=== PATIENT | male | born 1960 | race Caucasian/White ===

== ENCOUNTER 2016-10-23 19:34 | Emergency (ER) | payer BC ==
[~2016-10-23] VITALS: Wt 77.0 kg
[~2016-10-23 19:34] MED LIST: ATEN100T PO; GLYB2.5T PO; SITA100T8 PO
[2016-10-23] MEDS ORDERED: ACETAMINOPHEN 500 MG TAB PO STA (22:51)
--- NOTE | 2016-10-23 22:59 | ERD ---
ER Documentation Chief Complaint Date/Time DATE: 10/23/16 TIME: 22:53 Chief Complaint headache, pain/pressure 2 weeks HPI 55-year-old male presents here in emergency department for complaints of neck pain, head take for 2 weeks. Patient is complaining of soreness of the neck, throbbing pain, 6/10 scale, worse upon movement, feels muscle spasms in the neck , has been having it for the last 2 weeks, he radiates from the neck area to the lower head base. Patient also has high blood pressure, states that has been elevated. Patient did not have any trauma. Patient denies any nausea vomiting. Patient denies any blurry vision. Patient denies any focal weakness, numbness or tingling. Patient denies any changes in balance or memory. Patient denies any fever or chills. ROS All systems reviewed and are negative except as per history of present illness. Medications Home Meds Reported Medications Glyburide* (Diabeta*) 2.5 Mg Tablet, 2.5 MG PO DAILY 02/25/12 Sitagliptin* (Januvia*) 100 Mg Tablet, 100 MG PO DAILY 02/25/12 Atenolol* (Atenolol*) 100 Mg Tablet, 100 MG PO DAILY 11/19/10 Allergies Allergies: Coded Allergies: No Known Allergies (Verified Allergy, Mild, 06/30/16) PMhx/Soc History of Surgery: Yes (kidney stones ) Anesthesia Reaction: No Hx Neurological Disorder: No Hx Respiratory Disorders: No Hx Cardiac Disorders: No Hx Psychiatric Problems: No Hx Miscellaneous Medical Probl: Yes (dm htn ) Hx Alcohol Use: No Hx Substance Use: No Hx Tobacco Use: No FmHx Family History: No coronary disease, No diabetes, No other Physical Exam Vitals Vital Signs Date Time Temp Pulse Resp B/P Pulse Ox O2 Delivery O2 Flow Rate FiO2 10/23/16 19:38 98.3 74 15 169/88 99 Physical Exam GENERAL: The patient is well developed and appropriate for usual state of health, in no apparent distress. CHEST: Clear to auscultation bilaterally. There are no rales, wheezes or rhonchi. HEART: Regular rate and rhythm. No murmurs, clicks, rubs or gallops. No S3 or S4. ABDOMEN: Soft, nontender and nondistended. Good bowel sounds. No rebound or guarding. No gross peritonitis. No gross organomegaly or masses. No Blakely sign or McBurney point tenderness. BACK: No midline or flank tenderness. EXTREMITIES: Equal pulses bilaterally. There is no peripheral clubbing, cyanosis or edema. No focal swelling or erythema. Full range of motion. Grossly neurovascularly intact. NEURO: Alert and oriented. Cranial nerves 2-12 intact. Motor strength in all 4 extremities with 5/5 strength. Sensation grossly intact. Normal speech and gait. Negative Romberg sign. Negative pronator drift. SKIN: There is no apparent rash or petechia. The skin is warm and dry. HEMATOLOGIC AND LYMPHATIC: There is no evidence of excessive bruising or lymphedema. No gross cervical, axillary, or inguinal lymphadenopathy. Results 24 hrs Current Medications Medications (Trade) Dose Ordered Sig/Marcelle Route PRN Reason Start Time Stop Time Status Last Admin Dose Admin Acetaminophen (Tylenol Tab) 500 mg ONCE STAT PO 10/23/16 22:51 10/23/16 22:53 DC 10/23/16 23:59 Patient was given medication for pain here in emergency department, after treatment, patient verbalized feeling much better. Patient's pain is improved. PROCEDURE: CT BRAIN WITHOUT CONTRAST CLINICAL INDICATION: 55-year-old male with headaches. TECHNIQUE: The study was performed utilizing [employer] VCT 64-slice CT scanner. Direct axial sections were obtained from the foramen magnum to the vertex without the use of intravenous contrast material. Sagittal and coronal reformations were obtained. Automated exposure control and iterative reconstruction techniques were utilized for this examination. The images were viewed on a PACS workstation. CTD/vol = 44.5 mGy; Total Exam DLP = 720.2 mGy- cm. COMPARISON: None. FINDINGS: The ventricles are normal size, shape and position. There is no evidence for mass effect or midline shift. There are no intracranial areas of abnormal attenuation. There is no evidence for acute intra or extra-axial blood. The bony calvarium is intact. The partially visualized paranasal sinuses are without significant soft tissue. No air-fluid levels are noted. There is soft tissue filling the right mastoid air cells which are partially sclerotic. The left mastoid air cells are without significant soft tissue. IMPRESSION: 1. The intracranial contents are unremarkable on this noncontrast CT scan of the brain. 2. Right mastoid disease. .Brien Tejada MD, MD Date Time Electronically viewed and signed by .Brien Tejada MD, on 10/24/2016 00:57 .M/ Procedures/MDM Medical Decision Making: Patient's of headache most likely consistent with tension headache, also can be and neck muscle strain. There is low suspicion for neurological emergencies at this time since patients neurologic exam is normal. Patient did not have any altered level consciousness, vomiting, changes in balance or memory after incident. Patients CT scan of the head does not show any neurological emergencies at this time. Radiology exam of the cervical spine is not indicated at this time. No trauma involved. Patient was given prescription for Tylenol, Flexeril, patient is advised to apply warm compresses on affected area. Patient is advised to return to emergency department for any worsening symptoms Departure Diagnosis: Primary Impression: Headache Headache type: unspecified Headache chronicity pattern: unspecified pattern Intractability: not intractable Qualified Code: R51 - Nonintractable headache, unspecified chronicity pattern, unspecified headache type Additional Impression: Neck muscle strain Encounter type: initial encounter Qualified Code: S16.1XXA - Neck muscle strain, initial encounter Condition: Stable Patient Instructions: Neck Sprain/Strain, Self-Care for Headaches Additional Instructions: Patient was given prescription for Tylenol, Flexeril, patient is advised to apply warm compresses on affected area. Patient is advised to return to emergency department for any worsening symptoms REED TAVERAS NP Oct 23, 2016 22:59
--- NOTE | 2016-10-24 00:57 | RADRPT ---
PROCEDURE: CT BRAIN WITHOUT CONTRAST CLINICAL INDICATION: 55-year-old male with headaches. TECHNIQUE: The study was performed utilizing [employer] VCT 64-slice CT scanner. Direct axial sections were obtained from the foramen magnum to the vertex without the use of intravenous contrast material. Sagittal and coronal reformations were obtained. Automated exposure control and iterativ e reconstruction techniques were utilized for this examination. The images were viewed on a PACS [employer]. CTD/vol = 44.5 mGy; Total Exam DLP = 720.2 mGy-cm. COMPARISON: None. FINDINGS: The ventricles are normal size, shape and position. There is no evidence for mass effect or midline shift. There are no intracranial areas of abnormal attenuation. There is no evidence for acute in tra or extra-axial blood. The bony calvarium is intact. The partially visualized paranasal sinuses a re without significant soft tissue. No air-fluid levels are noted. There is soft tissue filling th e right mastoid air cells which are partially sclerotic. The left mastoid air cells are without sig nificant soft tissue. IMPRESSION: 1. The intracranial contents are unremarkable on this noncontrast CT scan of the brain. 2. Right mastoid disease. .Brien Tejada MD, MD Date Time Electronically viewed and signed by .Brien Tejada MD, on 10/24/2016 00:57 .M/
[2016-10-24] MEDS ORDERED: ACET500C5 PO (01:02)
[2016-10-24] MEDS ORDERED: CYCL-319 PO (01:02)
[2016-10-24 01:20] VITALS: BP 161/90; PULSE 65; RESP 20
== END 2016-10-24 01:20 | disposition home or self-care (01) ==
LOC: FTE 19:34
DX: R51 Headache (principal); S16.1XXA Strain of muscle, fascia and tendon at neck level, initial encounter; I10 Essential (primary) hypertension; E11.9 Type 2 diabetes mellitus without complications; X58.XXXA Exposure to other specified factors, initial encounter; Y92.9 Unspecified place or not applicable; Z79.84 Long term (current) use of oral hypoglycemic drugs
CPT/HCPCS: 70450; Z7502; Z7610

== ENCOUNTER 2017-06-03 08:20 | Emergency (ER) | payer BC ==
[~2017-06-03] VITALS: Ht 170.2 cm; Wt 74.0 kg
[~2017-06-03 08:20] MED LIST changes: +ACET500C5 PO; +CYCL-319 PO
[2017-06-03 08:27] VITALS: Ht 170.2 cm; Wt 74.0 kg
[2017-06-03] MEDS ORDERED: SOD CHLORIDE 0.9% 1,000 ML IV STA (08:41)
[2017-06-03] MEDS ORDERED: KETOROLAC 30 MG INJ IV STA (08:41)
[2017-06-03] MEDS ORDERED: ONDANSETRON 4 MG INJ IV STA (08:41)
--- NOTE | 2017-06-03 08:58 | ERD ---
ER Documentation Chief Complaint Date/Time DATE: 06/03/17 TIME: 08:56 Chief Complaint pt bib self with c/o flank pain 3-4 wks HPI 56-year-old male with a history of kidney stones, stent placement presents with bilateral flank pain that is sharp and intermittent for approximately 3-4 weeks now. Patient reports that the pain is intermittent, moderate, not improving with ibuprofen at home. In October 2016 he states that there was stent placement with kidney stone removal with Dr. Jason. Since then he has not tried any new interventions. He denies any hematuria, fevers, chills, he denies any urinary complaints including burning, urgency or frequency of urination. He denies chest pain or shortness of breath. ROS All systems reviewed and are negative except as per history of present illness. Medications Home Meds Active Scripts Hydrocodone/Acetaminophen ([place] 5-325 Tablet) 1 Each Tablet, 1 TAB PO Q6H Y for PAIN, #15 TAB Prov:LOVE LOVELACE PA-C 06/03/17 Cyclobenzaprine Hcl* (Cyclobenzaprine Hcl*) 10 Mg Tablet, 10 MG PO TID, #15 TAB Prov:REED TAVERAS NP 10/24/16 Acetaminophen* (Tylophen*) 500 Mg Capsule, 1 CAP PO Q6H Y for PAIN AND OR ELEVATED TEMP, #20 CAP Prov:REED TAVERAS GEODETIC SURVEY DIRECTOR 10/24/16 Reported Medications Glyburide* (Diabeta*) 2.5 Mg Tablet, 2.5 MG PO DAILY 02/25/12 Sitagliptin* (Januvia*) 100 Mg Tablet, 100 MG PO DAILY 02/25/12 Atenolol* (Atenolol*) 100 Mg Tablet, 100 MG PO DAILY 11/19/10 Allergies Allergies: Coded Allergies: No Known Allergies (Verified Allergy, Mild, 06/30/16) PMhx/Soc History of Surgery: Yes (Kidney, stent placed) Anesthesia Reaction: No Hx Neurological Disorder: No Hx Respiratory Disorders: No Hx Cardiac Disorders: No Hx Psychiatric Problems: No Hx Miscellaneous Medical Probl: Yes (dm htn ) Hx Alcohol Use: No Hx Substance Use: No Hx Tobacco Use: No Physical Exam Vitals Vital Signs Date Time Temp Pulse Resp B/P Pulse Ox O2 Delivery O2 Flow Rate FiO2 06/03/17 08:27 98.3 68 14 136/72 98 Physical Exam General: Well-developed, well-nourished. The patient appears in no acute distress. HEENT: Head is normocephalic, atraumatic. No scleral icterus. Neck: Supple. Nontender. Lungs: Clear to auscultation. Normal air movement. Heart: Regular rate and rhythm. S1 and S2 are normal. No murmurs, gallops, or rubs. Abdomen: Soft, nontender, nondistended. Bowel sounds are normoactive. Extremities: No clubbing or cyanosis. Normal pulses. Moving extremities x 4. No weakness. Neurologic: Alert and oriented 3. No focal deficits. Skin: Normal turgor. No rash or lesions. Result Diagram: 06/03/17 0900 06/03/17 0900 Results 24 hrs Laboratory Tests Test 06/03/17 09:00 White Blood Count 7.410^3/ul Red Blood Count 4.4010^6/ul Hemoglobin 14.0g/dl Hematocrit 40.3% Mean Corpuscular Volume 91.6fl Mean Corpuscular Hemoglobin 31.8pg Mean Corpuscular Hemoglobin Concent 34.7g/dl Red Cell Distribution Width 12.7% Platelet Count 29791^3/UL Mean Platelet Volume 10.1fl Neutrophils % 50.5% Lymphocytes % 35.8% Monocytes % 9.9% Eosinophils % 2.6% Basophils % 0.8% Nucleated Red Blood Cells % 0.0/100WBC Neutrophils # (Manual) 3.710^3/ul Lymphocytes # 2.710^3/ul Monocytes # 0.710^3/ul Eosinophils # 0.210^3/ul Basophils # 0.110^3/ul Nucleated Red Blood Cells # 0.010^3/ul Urine Color YELLOW Urine Clarity CLEAR Urine pH 6.0 Urine Specific [place] 1.014 Urine Ketones NEGATIVEmg/dL Urine Nitrite NEGATIVEmg/dL Urine Bilirubin NEGATIVEmg/dL Urine Urobilinogen NEGATIVEmg/dL Urine Leukocyte Esterase NEGATIVELeu/ul Urine Hemoglobin NEGATIVEmg/dL Urine Glucose NEGATIVEmg/dL Urine Total Protein NEGATIVEmg/dl Sodium Level 148mmol/L Potassium Level 3.4mmol/L Chloride Level 103mmol/L Carbon Dioxide Level 28mmol/L Anion Gap 20 Blood Urea Nitrogen 16mg/dl Creatinine 1.37mg/dl Glucose Level 98mg/dl Calcium Level 9.4mg/dl Total Bilirubin 0.4mg/dl Direct Bilirubin 0.00mg/dl Indirect Bilirubin 0.4mg/dl Aspartate Amino Transf (AST/SGOT) 41IU/L Alanine Aminotransferase (ALT/SGPT) 71IU/L Alkaline Phosphatase 107IU/L Total Protein 8.1g/dl Albumin 4.6g/dl Globulin 3.50g/dl Albumin/Globulin Ratio 1.31 Lipase 11U/L Current Medications Medications (Trade) Dose Ordered Sig/Marcelle Route PRN Reason Start Time Stop Time Status Last Admin Dose Admin Sodium Chloride (NS) 1,000 ml @ 1,000 mls/hr Q1H STAT IV 06/03/17 08:41 06/03/17 09:40 DC 06/03/17 09:13 Ondansetron HCl (Zofran Inj) 4 mg ONCE STAT IV 06/03/17 08:41 06/03/17 08:44 DC 06/03/17 09:13 Ketorolac Tromethamine (Toradol) 30 mg ONCE STAT IV 06/03/17 08:41 06/03/17 08:44 DC 06/03/17 09:14 DIAGNOSTIC IMAGING REPORT Patient: GRACE BALLARD : 1960 Age: 56 Sex: M MR #: [id number] DOS: 06/03/17 0843 Ordering MD: LOVE LOVELACE PA-C Location: E Room/Bed: PROCEDURE: CT Abdomen and Pelvis without contrast. CLINICAL INDICATION: Bilateral flank pain. TECHNIQUE: CT scan of the abdomen and pelvis without contrast was performed on a multidetector high-resolution CT scanner. The patient was scanned without intravenous contrast. Coronal and sagittal reformatted images were obtained from the axial source images. Images were reviewed on a high-resolution PACS workstation. One or more of the following dose reduction techniques were used: Automated exposure control, adjustment of the mA and/or kV according to patient size, use of iterative reconstruction technique. The total exam CTDI equals 9.24 mGy and the total exam DLP equals 560.73 mGy-cm. COMPARISON: CT from 09/20/2015. FINDINGS: CT abdomen: The lung bases are clear. The heart size is normal, without pericardial thickening or effusion. The liver is normal in size and density without focal mass or intrahepatic biliary dilatation. The spleen is normal in size and homogeneous in density. The stomach is grossly unremarkable. Extensive calcification and atrophic changes are noted within the pancreas, suggestive of chronic pancreatitis. The gallbladder and biliary tree are unremarkable and there is no evidence for biliary dilatation. The adrenal glands are symmetric and normal. A 3.3 x 2.7 cm cyst is present at the superior pole of the left kidney. A focal right perinephric calcification is present, likely benign. Otherwise, the kidneys are unremarkable. No renal calculus or obstructive uropathy or mass lesion is seen. The aorta is of normal caliber. There is no retroperitoneal lymphadenopathy. The mar hepatis region is clear. The small bowel and mesentery, as visualized , are unremarkable. Scattered diverticula are present throughout the descending colon without evidence of diverticulitis. CT pelvis: The small bowel loops situated within the pelvis are unremarkable. The pelvic organs are normal. The pelvic sidewalls and inguinal regions are clear. The sigmoid colon and rectum are unremarkable. The appendix is normal. No mass, lymphadenopathy, or free fluid is seen. No acute inflammation is seen. There is a small fat-containing indirect left inguinal hernia. The surrounding osseous structures are unremarkable. No osteolytic or osteoblastic lesion is detected. IMPRESSION: 1. No evidence of urolithiasis or obstructive uropathy. No abdominal or pelvic acute inflammatory process, mass, or lymphadenopathy. 2. Chronic pancreatitis with diffuse calcifications seen throughout the pancreas. 3. Diverticulosis without evidence of diverticulitis. 4. Small fat-containing indirect left inguinal hernia. RPTAT: JJ .Rocco Peres MD, MD Date Time Electronically viewed and signed by .Rocco Peres MD, on 06/03/2017 09:48 Procedures/[facility] ED course: Patient's IV lines please, labs and urine are obtained, he was given a fluid bolus of normal saline 1 L with Toradol 30 mg IV and Zofran 4 mg IV. Medical decision m[age]-year-old with a history of kidney stones presents with bilateral flank pain for 1 month, CT abdomen pelvis shows evidence of a chronic pancreatitis that was seen on a previous CT scan in 2015. Patient also has evidence of a left inguinal hernia, as well as a renal cyst on the left side. There is no evidence of urolithiasis. There is signs of septic kidney stones, acute pancreatitis, dissection, acute coronary syndrome. The case was reviewed and discussed with Dr. Kerr who agrees with the plan of care including labs, treatment, and advanced imaging as appropriate. Departure Diagnosis: Primary Impression: Flank pain Additional Impressions: Chronic pancreatitis Renal cyst Left inguinal hernia Condition: LOVE Naylor PA-C Jun 03, 2017 08:56
[2017-06-03 09:17] LABS: BASOPHIL # 0.1 10^3/ul (0.0-0.1); BASOPHILS % 0.8 % (0.0-2.0); EOSINOPHILS # 0.2 10^3/ul (0.0-0.5); EOSINOPHILS % 2.6 % (0.0-7.0); HEMATOCRIT 40.3 % (42.0-52.0); LYMPHOCYTES # 2.7 10^3/ul (0.8-2.9); LYMPHOCYTES % 35.8 % (15.0-51.0); MEAN CORPUSCULAR HEMOGLOBIN 31.8 pg (29.0-33.0); MEAN CORPUSCULAR HGB CONC 34.7 g/dl (32.0-37.0); MEAN CORPUSCULAR VOLUME 91.6 fl (82.0-101.0); MEAN PLATELET VOLUME 10.1 fl (7.4-10.4); MONOCYTE # 0.7 10^3/ul (0.3-0.9); MONOCYTES % 9.9 % (0.0-11.0); NEUTROPHILS % 50.5 % (39.0-77.0); PLATELET COUNT 233 10^3/UL (140-415); RED CELL DISTRIBUTION WIDTH 12.7 % (11.5-14.5); WHITE BLOOD COUNT 7.4 10^3/ul (4.8-10.8)
[2017-06-03 09:25] LABS: ADD UMIC NO; UR ASCORBIC ACID NEGATIVE (NEGATIVE); UR BILIRUBIN (Dip) NEGATIVE (NEGATIVE); UR BLOOD (Dip) NEGATIVE (NEGATIVE); UR CLARITY CLEAR (CLEAR); UR COLOR YELLOW (YELLOW); UR GLUCOSE (Dip) NEGATIVE (NEGATIVE); UR KETONES (Dip) NEGATIVE (NEGATIVE); UR LEUKOCYTE ESTERASE (Dip) NEGATIVE Leu/ul (NEGATIVE); UR NITRITE (Dip) NEGATIVE (NEGATIVE); UR SPECIFIC GRAVITY (Dip) 1.014 (1.003-1.030); UR TOTAL PROTEIN (Dip) NEGATIVE (NEGATIVE); UR UROBILINOGEN (Dip) NEGATIVE (NEGATIVE)
[2017-06-03 09:41] LABS: ALBUMIN 4.6 g/dl (3.3-4.9); ALBUMIN/GLOBULIN RATIO 1.31; BILIRUBIN,INDIRECT 0.4 mg/dl (0-1.1); BILIRUBIN,TOTAL 0.4 mg/dl (0.2-1.3); CALCIUM 9.4 mg/dl (8.4-10.2); CREATININE 1.37 mg/dl (0.61-1.24); POTASSIUM 3.4 mmol/L (3.5-5.1); TOTAL PROTEIN 8.1 g/dl (6.1-8.1)
--- NOTE | 2017-06-03 09:48 | RADRPT ---
PROCEDURE: CT Abdomen and Pelvis without contrast. CLINICAL INDICATION: Bilateral flank pain. TECHNIQUE: CT scan of the abdomen and pelvis without contrast was performed on a multidetector hig h-resolution CT scanner. The patient was scanned without intravenous contrast. Coronal and sagittal reformatted images were obtained from the axial source images. Images were reviewed on a high-resol [employer] PACS workstation. One or more of the following dose reduction techniques were used: Automated exposure control, adjustment of the mA and/or kV according to patient size, use of iterative recon struction technique. The total exam CTDI equals 9.24 mGy and the total exam DLP equals 560.73 mGy-c m. COMPARISON: CT from 09/20/2015. FINDINGS: CT abdomen: The lung bases are clear. The heart size is normal, without pericardial thickening or effusion. The liver is normal in size and density without focal mass or intrahepatic biliary dilatation. The spleen is normal in size and homogeneous in density. The stomach is grossly unremarkable. Extensiv e calcification and atrophic changes are noted within the pancreas, suggestive of chronic pancreatit is. The gallbladder and biliary tree are unremarkable and there is no evidence for biliary dilatati on. The adrenal glands are symmetric and normal. A 3.3 x 2.7 cm cyst is present at the superior po le of the left kidney. A focal right perinephric calcification is present, likely benign. Otherwise , the kidneys are unremarkable. No renal calculus or obstructive uropathy or mass lesion is seen. The aorta is of normal caliber. There is no retroperitoneal lymphadenopathy. The mar hepatis reg ion is clear. The small bowel and mesentery, as visualized, are unremarkable. Scattered diverticul a are present throughout the descending colon without evidence of diverticulitis. CT pelvis: The small bowel loops situated within the pelvis are unremarkable. The pelvic organs are normal. T he pelvic sidewalls and inguinal regions are clear. The sigmoid colon and rectum are unremarkable. The appendix is normal. No mass, lymphadenopathy, or free fluid is seen. No acute inflammation is s een. There is a small fat-containing indirect left inguinal hernia. The surrounding osseous structures are unremarkable. No osteolytic or osteoblastic lesion is detec bigg. IMPRESSION: 1. No evidence of urolithiasis or obstructive uropathy. No abdominal or pelvic acute inflammatory p rocess, mass, or lymphadenopathy. 2. Chronic pancreatitis with diffuse calcifications seen throughout the pancreas. 3. Diverticulosis without evidence of diverticulitis. 4. Small fat-containing indirect left inguinal hernia. RPTAT: JJ .Rocco Peres MD, MD Date Time Electronically viewed and signed by .Rocco Peres MD, on 06/03/2017 09:48 .A/
[2017-06-03] MEDS ORDERED: HYDR-906 PO (10:42)
[2017-06-03 10:50] VITALS: BP 145/85; PULSE 62; RESP 18
== END 2017-06-03 10:51 | disposition home or self-care (01) ==
LOC: FTE 08:20
DX: R10.9 Unspecified abdominal pain (principal); K86.1 Other chronic pancreatitis; N28.1 Cyst of kidney, acquired; K40.90 Unilateral inguinal hernia, without obstruction or gangrene, not specified as recurrent; I10 Essential (primary) hypertension; E11.9 Type 2 diabetes mellitus without complications; Z79.84 Long term (current) use of oral hypoglycemic drugs
CPT/HCPCS: 36415; 74176; 80053; 81003; 83690; 85025; 96361; 96374; 96375; J1885; J2405; J7030; Z7502